=== PATIENT | female | born 1960 | race Caucasian/White ===

== ENCOUNTER 2018-06-12 08:44 | Emergency (ER) | payer MEDICAID, OTHER ==
[~2018-06-12] VITALS: Ht 149.9 cm; Wt 69.0 kg
[~2018-06-12 08:44] MED LIST: CITA20TA2 PO; PANT-47 PO; TRAZ-218 PO
[2018-06-12 09:06] VITALS: BP 106/72
[2018-06-12 10:06] LABS: CLARITY,URINE SLIGHTLY CLOUDY (Clear); GLUCOSE, URINE NEGATIVE (Neg); KETONES,URINE NEGATIVE (Neg); LEUKOCYTE ESTERASE ,URINE TRACE (Neg); NITRITES, URINE NEGATIVE (Neg); OCCULT BLOOD,URINE NEGATIVE (Neg); PH,URINE 5.5 (4.8-8.0); PROTEIN,URINE NEGATIVE (Neg); UROBILINOGEN,URINE 0.2 E.U/dL (0.2-1.0)
[2018-06-12 10:14] LABS: UA COLLECTION TYPE CLN CATCH MIDSTREAM
[2018-06-12 10:15] LABS: COLOR,URINE Yellow (Yellow)
[2018-06-12 10:16] LABS: CAL OXALATE CRYSTALS 3+ /HPF (NEGATIVE); RBC,URINE NONE SEEN /HPF (0-2); SQUAMOUS EPITHELIAL CELL,UR MODERATE /LPF (FEW); WBC,URINE 0-4 /HPF (0-4)
[2018-06-12 10:17] LABS: BACTERIA,URINE 2+ /HPF (Neg); MUCUS STRANDS FEW /LPF (Neg)
== END 2018-06-12 10:49 | disposition home or self-care (01) ==
LOC: ER 08:45
DX: R10.31 Right lower quadrant pain (principal); G89.29 Other chronic pain; G47.00 Insomnia, unspecified; Z79.899 Other long term (current) drug therapy; Z90.49 Acquired absence of other specified parts of digestive tract
CPT/HCPCS: 81001; 87077; 87088; 87186; 99283

== ENCOUNTER 2019-06-02 15:05 | Emergency (ER) | payer MEDICAID ==
[~2019-06-02] VITALS: Ht 149.9 cm; Wt 66.4 kg
[~2019-06-02 15:05] MED LIST changes: -TRAZ-218 PO; +TRAZ-251 PO
[2019-06-02 15:22] VITALS: BP 109/75
[2019-06-02] MEDS ORDERED: HYDR-3567 PO (16:11)
== END 2019-06-02 16:25 | disposition home or self-care (01) ==
LOC: ER 15:06
DX: S92.354A Nondisplaced fracture of fifth metatarsal bone, right foot, initial encounter for closed fracture (principal); G89.29 Other chronic pain; Z90.49 Acquired absence of other specified parts of digestive tract; X50.1XXA Overexertion from prolonged static or awkward postures, initial encounter; Y93.89 Activity, other specified; Y92.89 Other specified places as the place of occurrence of the external cause; Y99.9 Unspecified external cause status
CPT/HCPCS: 73630; 99284

== ENCOUNTER 2019-06-13 15:27 | Outpatient (CLI) | payer MEDICAID ==
[~2019-06-13 15:27] MED LIST changes: +HYDR-3567 PO
== END 2019-06-13 16:36 | disposition home or self-care (01) ==
LOC: ORTHO 15:27
PROVIDERS: ATTEND Orthopaedic Surgery
DX: S92.351D Displaced fracture of fifth metatarsal bone, right foot, subsequent encounter for fracture with routine healing (principal); X58.XXXD Exposure to other specified factors, subsequent encounter
CPT/HCPCS: 73630; A4590; G0463

== ENCOUNTER 2019-07-11 09:14 | Outpatient (CLI) | payer MEDICAID ==
[~2019-07-11 09:14] MED LIST changes: -HYDR-3567 PO
== END 2019-07-11 09:49 | disposition home or self-care (01) ==
LOC: ORTHO 09:14
PROVIDERS: ATTEND Orthopaedic Surgery
DX: S92.351D Displaced fracture of fifth metatarsal bone, right foot, subsequent encounter for fracture with routine healing (principal); X58.XXXD Exposure to other specified factors, subsequent encounter
CPT/HCPCS: 73630; G0463

== ENCOUNTER 2019-09-28 21:53 | Inpatient (IN) | payer MEDICAID ==
[~2019-09-28] VITALS: Ht 149.9 cm; Wt 65.9 kg
[2019-09-28 22:24] LABS: BASOPHILS % (AUTO) 0.2 % (0-1); EOSINOPHILS % (AUTO) 0.4 % (0-6); HEMATOCRIT 40.6 % (35.0-45.0); HEMOGLOBIN 13.8 g/dl (12.0-16.0); LYMPHOCYTES # (AUTO) 1.4 X10'3 (1.1-4.8); LYMPHOCYTES % (AUTO) 10.6 % (21-51); MEAN CORPUSCULAR HEMOGLOBIN 30.2 PG (27.0-31.0); MEAN CORPUSCULAR HGB CONC 33.9 g/dL (33.0-36.5); MEAN CORPUSCULAR VOLUME 89.3 FL (78-98); MEAN PLATELET VOLUME 6.2 FL (7.4-10.4); MONOCYTES # (AUTO) 0.9 X10'3 (0-0.9); NEUTROPHILS # (AUTO) 10.7 X10'3 (1.8-7.7); NEUTROPHILS % (AUTO) 81.8 % (42-75); PLATELET COUNT 330 X10'3 (140-440); RED BLOOD COUNT 4.55 X10'6 (4.20-5.60); WHITE BLOOD COUNT 13.1 X10'3 (4.5-11.0)
[2019-09-28] MEDS ORDERED: mag hydrox/Alum hydrox/simeth 30ml oral suspension PO ONE (22:35)
[2019-09-28] MEDS ORDERED: ondansetron/PF 4mg/2ml inj IV ONE (22:35)
[2019-09-28] MEDS ORDERED: normal saline 1000ML IV soln IVB ONE ×2 (22:35→23:30)
[2019-09-28] MEDS ORDERED: pantoprazole 40 MG vial IV ONE (22:35)
[2019-09-28 22:46] LABS: ALANINE AMINOTRANSFERASE 20 U/L (12-78); ALBUMIN 3.9 G/DL (3.4-5.0); ALBUMIN/GLOBULIN RATIO 1.1 (1.1-1.5); ALKALINE PHOSPHATASE 106 IU/L (46-116); ANION GAP 10 (8-16); ASPARTATE AMINO TRANSFERASE 21 U/L (10-37); BILIRUBIN,TOTAL 0.2 MG/DL (0.1-1.0); BLOOD UREA NITROGEN 18 MG/DL (7-18); BUN/CREATININE RATIO 20.2 (6.6-38.0); CALCIUM 9.7 MG/DL (8.5-10.1); CHLORIDE 106 MMOL/L (99-107); CREATININE 0.89 MG/DL (0.40-0.90); GLUCOSE 145 MG/DL (70-104); POTASSIUM 3.8 MMOL/L (3.5-5.1); SODIUM 140 MMOL/L (135-145); TOTAL CARBON DIOXIDE 24.3 MMOL/L (24-32); TOTAL PROTEIN 7.6 G/DL (6.4-8.2); eGFR 65 ML/MIN
[2019-09-28 23:22] LABS: LIPASE > 30000 U/L (73-393)
[2019-09-28] MEDS ORDERED: morphine 4 MG/ML inj SYRINge IV ONE (23:30)
[2019-09-28] MEDS ORDERED: iohexol 300mg/ml 100ml inj. ONE (23:37)
[2019-09-29 00:16] LABS: URINE HCG NEGATIVE (NEG)
[2019-09-29 00:21] LABS: CLARITY,URINE CLEAR (Clear); COLOR,URINE YELLOW (Yellow); GLUCOSE, URINE NEGATIVE (Neg); KETONES,URINE NEGATIVE (Neg); LEUKOCYTE ESTERASE ,URINE NEGATIVE (Neg); NITRITES, URINE NEGATIVE (Neg); OCCULT BLOOD,URINE NEGATIVE (Neg); PROTEIN,URINE NEGATIVE (Neg); UROBILINOGEN,URINE 0.2 E.U/dL (0.2-1.0)
[2019-09-29 00:30] LABS: UA COLLECTION TYPE CLN CATCH MIDSTREAM
[2019-09-29] MEDS ORDERED: morphine 4 MG/ML inj SYRINge IV ONE (00:35)
[2019-09-29] MEDS ORDERED: magnesium hydroxide 30ml (MOM) UD suspension PO PRN (00:55)
[2019-09-29] MEDS ORDERED: potassium CL 10mEq/100ml bag 100 ML IV PRN ×2 (00:55)
[2019-09-29] MEDS ORDERED: mag hydrox/Alum hydrox/simeth 30ml oral suspension PO PRN (00:55)
[2019-09-29] MEDS ORDERED: magnesium Cl slow-release 64mg tablet PO PRN (00:55)
[2019-09-29] MEDS ORDERED: ondansetron/PF 4mg/2ml inj IV PRN (00:55)
[2019-09-29] MEDS ORDERED: potassium Cl 20 mEq SR tablet PO PRN ×2 (00:55)
[2019-09-29] MEDS ORDERED: magnesium 2GM in 50ml NS 50 ML IV PRN (00:55)
[2019-09-29] MEDS ORDERED: magnesium 4gm in 100ml NS 100 ML IV PRN (00:55)
[2019-09-29] MEDS: normal saline 1000ml 1,000 ML IV SCH ×3 (01:15→18:36)
--- NOTE | 2019-09-29 03:30 | NUR ---
Received report from Sly VELASCO in [place]. Patient arrived on the floor in the wheelchair and has been complaining of abdominal pain due to acute pancreatitis. Vital signs stable and patient resting.
[2019-09-29] MEDS: morphine 2 MG/ML inj. syringe IV PRN ×3 (03:32→15:05)
[2019-09-29 05:01] VITALS: BP 114/63
--- NOTE | 2019-09-29 06:33 | NUR ---
Problems reprioritized. Patient report given, questions answered & plan of care reviewed with LUTHER VELASCO.
[2019-09-29] MEDS: acetaminophen 325mg tablet PO PRN (06:39)
[2019-09-29 08:00] VITALS: BP 127/78
[2019-09-29] MEDS: K and/or MAG REPLACEMENT MC SCH ×2 (08:00→20:00)
[2019-09-29 11:00] VITALS: BP 121/71
[2019-09-29 13:01] LABS: ALANINE AMINOTRANSFERASE 28 U/L (12-78); ALBUMIN 3.4 G/DL (3.4-5.0); ALKALINE PHOSPHATASE 91 IU/L (46-116); ANION GAP 9 (8-16); ASPARTATE AMINO TRANSFERASE 32 U/L (10-37); BILIRUBIN,TOTAL 0.4 MG/DL (0.1-1.0); BLOOD UREA NITROGEN 12 MG/DL (7-18); BUN/CREATININE RATIO 15.2 (6.6-38.0); CALCIUM 8.4 MG/DL (8.5-10.1); CHLORIDE 110 MMOL/L (99-107); CREATININE 0.79 MG/DL (0.40-0.90); GLUCOSE 109 MG/DL (70-104); POTASSIUM 3.9 MMOL/L (3.5-5.1); SODIUM 143 MMOL/L (135-145); TOTAL CARBON DIOXIDE 24.2 MMOL/L (24-32); TOTAL PROTEIN 6.9 G/DL (6.4-8.2); eGFR 74 ML/MIN
[2019-09-29 13:31] LABS: LIPASE 16239 U/L (73-393)
--- NOTE | 2019-09-29 17:08 | NUR ---
Student documentation: I have reviewed and agree with all interventions, assessments performed and documented by SN Johan. Student Medication Administration: For this medication-pass time frame, all medication were reviewed, dispensed, administered and documented per hospital policy by SN Johan.
--- NOTE | 2019-09-29 18:47 | NUR ---
Problems reprioritized. Patient report given, questions answered & plan of care reviewed with ROD SCHNEIDER.
--- NOTE | 2019-09-29 19:19 | NUR ---
Patient in room [facility]. I have received report from Alysia VELASCO and had the opportunity to ask questions and assume patient care.
[2019-09-29 20:00] VITALS: BP 133/79
[2019-09-29] MEDS: traZODone 50mg tablet PO SCH (20:40)
[2019-09-30 00:19] VITALS: BP 114/61
[2019-09-30] MEDS: normal saline 1000ml 1,000 ML IV SCH ×4 (00:56→21:22)
[2019-09-30] MEDS: acetaminophen 325mg tablet PO PRN (00:59)
[2019-09-30 05:53] LABS: BASOPHILS % (AUTO) 0.2 % (0-1); EOSINOPHILS # (AUTO) 0.1 X10'3 (0-0.9); EOSINOPHILS % (AUTO) 0.5 % (0-6); HEMOGLOBIN 12.2 g/dl (12.0-16.0); MEAN CORPUSCULAR HEMOGLOBIN 30.4 PG (27.0-31.0); MEAN CORPUSCULAR HGB CONC 33.8 g/dL (33.0-36.5); MEAN CORPUSCULAR VOLUME 89.8 FL (78-98); MEAN PLATELET VOLUME 6.6 FL (7.4-10.4); MONOCYTES % (AUTO) 6.9 % (2-12); NEUTROPHILS # (AUTO) 11.8 X10'3 (1.8-7.7); NEUTROPHILS % (AUTO) 85.4 % (42-75); PLATELET COUNT 258 X10'3 (140-440); RED BLOOD COUNT 4.01 X10'6 (4.20-5.60); RED CELL DISTRIBUTION WIDTH 13.1 % (11.5-14.5); WHITE BLOOD COUNT 13.8 X10'3 (4.5-11.0)
[2019-09-30 05:58] LABS: ALANINE AMINOTRANSFERASE 22 U/L (12-78); ALBUMIN 2.9 G/DL (3.4-5.0); ALBUMIN/GLOBULIN RATIO 0.9 (1.1-1.5); ALKALINE PHOSPHATASE 77 IU/L (46-116); ANION GAP 7 (8-16); ASPARTATE AMINO TRANSFERASE 22 U/L (10-37); BILIRUBIN,TOTAL 0.4 MG/DL (0.1-1.0); BLOOD UREA NITROGEN 8 MG/DL (7-18); BUN/CREATININE RATIO 11.3 (6.6-38.0); CALCIUM 8.2 MG/DL (8.5-10.1); CHLORIDE 110 MMOL/L (99-107); CREATININE 0.71 MG/DL (0.40-0.90); GLUCOSE 114 MG/DL (70-104); MAGNESIUM 1.8 MG/DL (1.5-2.4); POTASSIUM 3.6 MMOL/L (3.5-5.1); SODIUM 140 MMOL/L (135-145); TOTAL CARBON DIOXIDE 22.9 MMOL/L (24-32); TOTAL PROTEIN 6.2 G/DL (6.4-8.2); eGFR 84 ML/MIN
--- NOTE | 2019-09-30 06:39 | NUR ---
Problems reprioritized. Patient report given, questions answered & plan of care reviewed with Ijeoma VELASCO.
[2019-09-30 07:50] VITALS: BP 97/51
[2019-09-30] MEDS: K and/or MAG REPLACEMENT MC SCH ×2 (08:00→20:00)
[2019-09-30] MEDS: morphine 2 MG/ML inj. syringe IV PRN ×2 (11:24→21:41)
[2019-09-30 12:00] VITALS: BP 137/73
[2019-09-30] MEDS ORDERED: SUMAtriptan 25 MG tablet PO PRN (12:20)
[2019-09-30] MEDS ORDERED: sodium phosphate inj. 15 MMOL in dextrose 5%-water 250 ML IV ONE (12:20)
[2019-09-30 12:52] LABS: LIPASE 4639 U/L (73-393)
[2019-09-30 15:48] LABS: CHOL/HDL RATIO 2.3 (0.00-4.99); CHOLESTEROL 139 MG/DL (0-200); HDL CHOLESTEROL 60 MG/DL (35-60); LDL CHOLESTEROL 69 MG/DL (50-100); TRIGLYCERIDES 45 MG/DL (20-135)
--- NOTE | 2019-09-30 18:34 | NUR ---
Problems reprioritized. Patient report given, questions answered & plan of care reviewed with Janny VELASCO.
--- NOTE | 2019-09-30 18:48 | NUR ---
Patient in room [facility]. I have received report from Ijeoma VELASCO and had the opportunity to ask questions and assume patient care.
[2019-09-30 20:00] VITALS: BP 127/71
[2019-09-30] MEDS: traZODone 50mg tablet PO SCH (21:40)
[2019-10-01] VITALS: BP 119/70
[2019-10-01] MEDS: normal saline 1000ml 1,000 ML IV SCH ×2 (04:02→11:20)
[2019-10-01 04:55] LABS: BASOPHILS % (AUTO) 0.2 % (0-1); EOSINOPHILS # (AUTO) 0.2 X10'3 (0-0.9); EOSINOPHILS % (AUTO) 1.7 % (0-6); HEMATOCRIT 34.1 % (35.0-45.0); HEMOGLOBIN 11.7 g/dl (12.0-16.0); LYMPHOCYTES # (AUTO) 0.8 X10'3 (1.1-4.8); LYMPHOCYTES % (AUTO) 6.3 % (21-51); MEAN CORPUSCULAR HEMOGLOBIN 30.6 PG (27.0-31.0); MEAN CORPUSCULAR HGB CONC 34.4 g/dL (33.0-36.5); MEAN CORPUSCULAR VOLUME 88.9 FL (78-98); MEAN PLATELET VOLUME 6.8 FL (7.4-10.4); MONOCYTES # (AUTO) 1.1 X10'3 (0-0.9); MONOCYTES % (AUTO) 8.3 % (2-12); NEUTROPHILS # (AUTO) 10.8 X10'3 (1.8-7.7); NEUTROPHILS % (AUTO) 83.5 % (42-75); PLATELET COUNT 233 X10'3 (140-440); RED BLOOD COUNT 3.83 X10'6 (4.20-5.60); RED CELL DISTRIBUTION WIDTH 12.8 % (11.5-14.5); WHITE BLOOD COUNT 12.9 X10'3 (4.5-11.0)
[2019-10-01 05:03] LABS: ALANINE AMINOTRANSFERASE 26 U/L (12-78); ALBUMIN 2.8 G/DL (3.4-5.0); ALBUMIN/GLOBULIN RATIO 0.8 (1.1-1.5); ALKALINE PHOSPHATASE 74 IU/L (46-116); ANION GAP 8 (8-16); ASPARTATE AMINO TRANSFERASE 31 U/L (10-37); BILIRUBIN,TOTAL 0.6 MG/DL (0.1-1.0); BLOOD UREA NITROGEN 6 MG/DL (7-18); BUN/CREATININE RATIO 10.9 (6.6-38.0); CALCIUM 8.2 MG/DL (8.5-10.1); CHLORIDE 109 MMOL/L (99-107); CREATININE 0.55 MG/DL (0.40-0.90); GLUCOSE 87 MG/DL (70-104); LIPASE 452 U/L (73-393); MAGNESIUM 1.6 MG/DL (1.5-2.4); PHOSPHORUS 1.5 MG/DL (2.3-4.5); POTASSIUM 3.1 MMOL/L (3.5-5.1); SODIUM 139 MMOL/L (135-145); TOTAL CARBON DIOXIDE 21.6 MMOL/L (24-32); TOTAL PROTEIN 6.2 G/DL (6.4-8.2); eGFR > 90 ML/MIN
--- NOTE | 2019-10-01 06:57 | NUR ---
Patient in room [facility]. I have received report from Janny VELASCO and had the opportunity to ask questions and assume patient care.
[2019-10-01 08:00] VITALS: BP 125/71
[2019-10-01] MEDS: K and/or MAG REPLACEMENT MC SCH (08:36)
--- NOTE | 2019-10-01 10:27 | NUR ---
PAGER ID: [phone] MESSAGE: [id number] Lipase [id number], can we try and feed her? Barb [id number]
[2019-10-01 11:43] VITALS: BP 132/71
--- NOTE | 2019-10-01 16:13 | NUR ---
PAGER ID: [phone] MESSAGE: [id number] is tolerating her diet without increase in pain, regular diet intake currently. Barb [id number]
--- NOTE | 2019-10-01 16:17 | NUR ---
Patient is tolerating diet without increase in pain. Notified Dr. Sanchez by page.
[2019-10-01] MEDS ORDERED: HYDR-4383 PO ×2 (16:44→17:01)
[2019-10-01] MEDS ORDERED: OMEP40CA13 PO (17:01)
--- NOTE | 2019-10-01 18:06 | NUR ---
Patient home, ride arrived. Patient VS stable, no distress noted. Patient left without informing nurse. Discharge paper work completed and education completed with patient.
== END 2019-10-01 18:06 | disposition home or self-care (01) | DRG 282 ==
LOC: ER 21:54 → ED HOLD 09-29 00:52 → SUR 3N 09-29 03:48
PROVIDERS: ADMIT Family Medicine; ATTEND Family Medicine
PROC: BW211ZZ Computerized Tomography (CT Scan) of Abdomen and Pelvis using Low Osmolar Contrast (ICD-10-PCS; principal; 2019-09-29)
DX: K85.90 Acute pancreatitis without necrosis or infection, unspecified (principal); D72.829 Elevated white blood cell count, unspecified; K59.00 Constipation, unspecified; Z90.49 Acquired absence of other specified parts of digestive tract; G89.29 Other chronic pain; E87.6 Hypokalemia; G43.909 Migraine, unspecified, not intractable, without status migrainosus
CPT/HCPCS: 36415; 74177; 80053; 80061; 81003; 81025; 82465; 83690; 83735; 84100; 85025; 87081; 96374; 99285; C9113; G0378; J2270; J2405; J7030; J7060; Q9967

== ENCOUNTER 2023-01-31 09:39 | Emergency (ER) | payer MEDICAID ==
[~2023-01-31] VITALS: Ht 149.9 cm; Wt 69.0 kg
[~2023-01-31 09:39] MED LIST changes: -CITA20TA2 PO; +HYDR-4383 PO; -PANT-47 PO
[2023-01-31 09:42] VITALS: BP 140/91
[2023-01-31] MEDS ORDERED: BUDE180A INH (10:39)
[2023-01-31] MEDS ORDERED: AMOX-117 PO (10:39)
[2023-01-31] MEDS ORDERED: BENZ-38 PO (10:39)
[2023-01-31] MEDS ORDERED: ALBU6.7H14 INH (10:39)
[2023-01-31] MEDS ORDERED: DEXA6TAB PO (10:39)
== END 2023-01-31 11:04 | disposition home or self-care (01) ==
LOC: ER 09:39
DX: U07.1 COVID-19 (principal); J40 Bronchitis, not specified as acute or chronic; G89.29 Other chronic pain; Z79.899 Other long term (current) drug therapy
CPT/HCPCS: 71045; 99283

== ENCOUNTER 2023-11-12 19:20 | Emergency (ER) | payer MEDICAID ==
[~2023-11-12] VITALS: Ht 149.9 cm; Wt 74.1 kg
[~2023-11-12 19:20] MED LIST changes: +ALBU6.7H14 INH; +BUDE180A INH; +DEXA6TAB PO
[2023-11-12 20:11] LABS: BASOPHILS % (AUTO) 0.3 % (0-1); EOSINOPHILS # (AUTO) 0.2 X10'3 (0-0.9); EOSINOPHILS % (AUTO) 2.1 % (0-6); HEMOGLOBIN 13.7 g/dl (12.0-16.0); LYMPHOCYTES # (AUTO) 1.2 X10'3 (1.1-4.8); LYMPHOCYTES % (AUTO) 16.8 % (21-51); MEAN CORPUSCULAR HEMOGLOBIN 30.8 PG (27.0-31.0); MEAN CORPUSCULAR HGB CONC 34.3 g/dL (33.0-36.5); MEAN CORPUSCULAR VOLUME 89.8 FL (78-98); MEAN PLATELET VOLUME 6.4 FL (7.4-10.4); MONOCYTES # (AUTO) 1.1 X10'3 (0-0.9); MONOCYTES % (AUTO) 14.4 % (2-12); NEUTROPHILS # (AUTO) 4.9 X10'3 (1.8-7.7); NEUTROPHILS % (AUTO) 66.4 % (42-75); PLATELET COUNT 255 X10'3 (140-440); RED BLOOD COUNT 4.46 X10'6 (4.20-5.60); RED CELL DISTRIBUTION WIDTH 13.3 % (11.5-14.5); WHITE BLOOD COUNT 7.4 X10'3 (4.5-11.0)
[2023-11-12] MEDS ORDERED: iohexol 350MG/ML 100ml bottle IV ONE (20:15)
[2023-11-12 20:22] LABS: ALBUMIN 3.7 G/DL (3.4-5.0); ANION GAP 13 (8-16); BLOOD UREA NITROGEN 15 MG/DL (7-18); BUN/CREATININE RATIO 17.4 (10.0-20.0); CALCIUM 8.9 MG/DL (8.5-10.1); CHLORIDE 103 MMOL/L (99-107); CREATININE 0.86 MG/DL (0.40-0.90); GLUCOSE 114 MG/DL (70-104); POTASSIUM 3.3 MMOL/L (3.5-5.1); PRO BRAIN NATRIURETIC PEPTIDE 30 PG/ML (0-125); SODIUM 138 MMOL/L (135-145); TOTAL CARBON DIOXIDE 21.8 MMOL/L (24-32); eCRCL 46 ML/MIN; eGFR 67 ML/MIN
[2023-11-12 20:52] LABS: ALANINE AMINOTRANSFERASE 26 U/L (12-78); ALBUMIN/GLOBULIN RATIO 0.9 (1.1-1.5); ALKALINE PHOSPHATASE 88 IU/L (46-116); ASPARTATE AMINO TRANSFERASE 24 U/L (10-37); BILIRUBIN,TOTAL 0.3 MG/DL (0.1-1.0); FREE T4 (FREE THYROXINE) 0.91 NG/DL (0.73-1.40); LIPASE 31 U/L (16-77); MAGNESIUM 1.9 MG/DL (1.5-2.4); THYROID STIMULATING HORMONE 1.47 ulU/ml (0.34-4.50)
[2023-11-12 20:56] LABS: BILIRUBIN,DIRECT 0.1 MG/DL (0-0.3)
[2023-11-12] MEDS ORDERED: AZIT-164 PO (23:24)
[2023-11-12] MEDS: azithromycin 250mg tablet PO ONE (23:29)
[2023-11-13 00:17] VITALS: BP 129/92; PULSE 102; RESP 16; TEMP 98.5; O2SAT 97
== END 2023-11-13 00:19 | disposition home or self-care (01) ==
LOC: ER 19:20
DX: J40 Bronchitis, not specified as acute or chronic (principal); Z79.899 Other long term (current) drug therapy; Z90.49 Acquired absence of other specified parts of digestive tract
CPT/HCPCS: 36415; 71045; 71275; 80048; 80076; 83605; 83690; 83735; 83880; 84145; 84439; 84443; 84484; 85025; 87040; 93005; 99285; J3490; Q9967

== ENCOUNTER 2024-08-27 11:52 | Emergency (ER) | payer MEDICAID ==
[~2024-08-27] VITALS: Ht 162.6 cm; Wt 72.4 kg
[~2024-08-27 11:52] MED LIST changes: -BUDE180A INH; +BUDE180A5 INH
[2024-08-27 12:02] VITALS: RESP 18
[2024-08-27] MEDS: LIDOcaine 1% W/epiNEPHrine 1:100,000 20ml vial SQ ONE (13:50)
[2024-08-27] MEDS: LIDOcaine/epinephrine/tetracaine TOPICAL sol 3 ML syringe TOP ONE (14:25)
[2024-08-27] MEDS ORDERED: HYDR30CR79 TOP (14:30)
[2024-08-27 15:14] VITALS: BP 134/85; PULSE 75; TEMP 98.1; O2SAT 98
== END 2024-08-27 15:21 | disposition home or self-care (01) ==
LOC: ER 11:54
DX: K64.5 Perianal venous thrombosis (principal); Z90.49 Acquired absence of other specified parts of digestive tract
CPT/HCPCS: 46083; 99284; J3490